=== PATIENT | male | born 1950 | race Caucasian/White ===

== ENCOUNTER 2018-03-15 20:28 | Emergency (ER) | payer MEDICARE ==
[2018-03-15] MEDS ORDERED: Tetan/Diph/Pertus SYR(Tdap)* 0.5 ML SYR(BOOSTRIX) use SYR IM ONE (21:07)
[2018-03-15] MEDS ORDERED: NS 0.9% 1000 ML* 1,000 ML IV ONE (21:07)
[2018-03-15] MEDS ORDERED: Lidocaine 2% EPI 1:200000 MPF*10-20 ML VIAL ONE (21:10)
[2018-03-15 22:10] LABS: ABS Basophils 0.1 10^3/ul (0-0.2); ABS Eosinophils 0.1 10^3/ul (0-0.6); ABS Lymphocytes 0.8 10^3/ul (1.0-4.8); ABS Neutrophils 15.4 10^3/ul (1.5-7.7); ABS Nucleated RBC 0 10^3/ul; Eosinophil % 0.4 % (0-6); Hematocrit 43 % (42-52); Hemoglobin 14.2 g/dl (14.0-18.0); Lymphocyte % 4.5 % (25-47); Mean Corpuscular HGB Conc 33 g/dl (31-36); Mean Corpuscular Hemoglobin 29 pg (27-31); Mean Corpuscular Volume 87 fL (80-94); Mean Platelet Volume 8.1 um3 (7.4-10.4); Nucleated Red Blood Cells % 0; Platelet Count 220 10^3/ul (150-450); Red Blood Count 4.94 10^6/ul (4.0-5.4); Red Cell Distribution Width 14 % (10.5-15); White Blood Count 17.2 10^3/ul (3.5-10.8)
[2018-03-15 22:21] LABS: EGFR Non-African American 56.1 (>60)
[2018-03-15 23:20] VITALS: BP 149/82
--- NOTE | 2018-03-16 00:41 | ED ---
Destin Barnett Gabriel, scribed for Abhijeet Salinas MD on 03/15/18 at 2105 . Laceration/Wound HPI - HPI Summary HPI Summary: This patient is a 67 year old M BIBA to [facility] s/p syncopal episode that occurred [employer]. Pt was at the gym lifting when he had a sudden LOC. He states this has happened several times in the past but it has been a few years since the last one. After his most recent one the patient received a full cardiac work up but nothing abnormal was found. It was diagnosed as vasovagal episodes. Today when the patient fell he struck his chin causing a laceration on the inferior aspect of it. - History of Current Complaint Stated Complaint: SYNCOPE Time Seen by Provider: 03/15/18 20:53 Hx Obtained From: Patient Mechanism of Injury: Sharp/Blunt Trauma Onset/Duration: Sudden Onset, Resolved Onset Severity: Mild Current Severity: Mild Pain Intensity: 0 Pain Scale Used: 0-10 Numeric Associated Signs & Symptoms: Negative - fever - Allergy/Home Medications Allergies/Adverse Reactions: Allergies Allergy/AdvReac Type Severity Reaction Status Date / Time No Known Allergies Allergy Verified 11/16/16 11:27 PMH/Surg Hx/FS Hx/Imm Hx Cardiovascular History: Reports: Hx Hypertension Denies: Hx Hypotension, Hx Myocardial Infarction, Hx Pacemaker/ICD Respiratory History: Denies: Hx Chronic Obstructive Pulmonary Disease (COPD), Hx Cystic Fibrosis GI History: Denies: Hx Gastrointestinal Bleed Neurological History: Reports: Other Neuro Impairments/Disorders - vasovagal episodes Psychiatric History: Denies: Hx Attention Deficit Hyperactivity Disorder Infectious Disease History: No Infectious Disease History: Denies: Traveled Outside the [place] in Last 30 Days - Family History Known Family History: Positive: Hypertension, Diabetes Negative: Cardiac Disease, Respiratory Disease, Seizure Disorder - Social History Lives: With Family Alcohol Use: None Substance Use Type: Reports: None Smoking Status (MU): Never Smoked Tobacco Review of Systems Positive: Other - lac on chin Positive: Syncope All Other Systems Reviewed And Are Negative: Yes Physical Exam - Summary Physical Exam Summary: VITAL SIGNS: Reviewed. GENERAL: Patient is a well-developed and nourished malewho is lying comfortable in the stretcher. Patient is not in any acute respiratory distress. HEAD AND FACE: No signs of trauma. No ecchymosis, hematomas or skull depressions. No sinus tenderness. EYES: PERRLA, EOMI x 2, No injected conjunctiva, no nystagmus. EARS: Hearing grossly intact. Ear canals and tympanic membranes are within normal limits. MOUTH: Oropharynx within normal limits. NECK: Supple, trachea is midline, no adenopathy, no JVD, no carotid bruit, no c- spine tenderness, neck with full ROM. CHEST: Symmetric, no tenderness at palpation LUNGS: Clear to auscultation bilaterally. No wheezing or crackles. CVS: Regular rate and rhythm, S1 and S2 present, no murmurs or gallops appreciated. ABDOMEN: Soft, non-tender. No signs of distention. No rebound no guarding, and no masses palpated. Bowel sounds are normal. EXTREMITIES: FROM in all major joints, no edema, no cyanosis or clubbing. NEURO: Alert and oriented x 3. No acute neurological deficits. Speech is normal and follows commands. SKIN: there is a 1 inch laceration with active bleeding on his chin Triage Information Reviewed: Yes Vital Signs On Initial Exam: Initial Vitals Temp Pulse Resp BP Pulse Ox 97.9 F 77 18 130/81 98 03/15/18 20:33 03/15/18 20:33 03/15/18 20:33 03/15/18 20:33 03/15/18 20:33 Vital Signs Reviewed: Yes Procedures - Procedure Summary Procedure Summary: There was a .5cm laceration under the bottom lip that was repaired with derma dukes. Sterile technique was used and procedure was well tolerated. - Laceration/Wound Repair 1 Location: face - inferior chin Description: Irregular Anesthesia: 2.0%, Lido, Epi Length, Depth and Shape: 3cm Irrigated w/ Saline (ccs): 100 Laceration/Wound Explored: clean, no foreign body removed Suture Type: Prolene - 3O Number of Sutures: 13 Layer Closure?: Yes Sterile Dressing Applied?: Yes Diagnostics - Vital Signs Vital Signs Temp Pulse Resp BP Pulse Ox 03/15/18 20:33 97.9 F 77 18 130/81 98 - Laboratory Result Diagrams: 03/15/18 21:57 03/15/18 21:57 Lab Statement: Any lab studies that have been ordered have been reviewed, and results considered in the medical decision making process. - EKG 2137 Cardiac Rate: NL EKG Rhythm: Sinus Rhythm - at [address] Segment: Non-Specific Re-Evaluation - Re-Evaluation First Eval Re-Evaluation Time: 22:58 Change: Improved Comment: Pt is feeling better, I reviewed lab results with the pt. Laceration Repair Course/Dx - Course Assessment/Plan: This patient is a 67 year old M BIBA to [facility] s/p syncopal episode that occurred [employer]. Pt was at the gym lifting when he had a sudden LOC. He states this has happened several times in the past but it has been a few years since the last one. After his most recent one the patient received a full cardiac work up but nothing abnormal was found. It was diagnosed as vasovagal episodes. Today when the patient fell he struck his chin causing a laceration on the inferior aspect of it. An EKG reveals non specific T wave changes. Tetanus was given. . Test results with no significant abnormalities. Dx chin laceration and vasovagal syncope. Patient will be discharged and follow up from PCP in 5 days. The patient is agreeable with this plan. - Clinical Impression Provider Diagnoses: Laceration, Vasovagal episode Discharge - Sign-Out/Discharge Documenting (check all that apply): Discharge/Admit/Transfer - Discharge Plan Condition: Stable Disposition: HOME Patient Education Materials: Syncope (ED), Stitches Removal (ED) Referrals: Natasha Quintero MD [Primary Care Provider] - 5 Days Additional Instructions: Please follow up with your primary care doctor in 5-7 days to have the sutures removed. RETURN TO THE ER FOR ANY NEW OR WORSENING SYMPTOMS The documentation as recorded by the Destin bianchi Gabriel accurately reflects the service I personally performed and the decisions made by me, Abhijeet Salinas MD.
== END 2018-03-15 23:20 | disposition home or self-care (01) ==
LOC: ED 20:28
DX: R55 Syncope and collapse (principal); S01.81XA Laceration without foreign body of other part of head, initial encounter; W22.8XXA Striking against or struck by other objects, initial encounter; Y93.B3 Activity, free weights; Y92.39 Other specified sports and athletic area as the place of occurrence of the external cause; Z23 Encounter for immunization; I10 Essential (primary) hypertension
CPT/HCPCS: 12013; 36415; 80053; 83735; 84443; 84484; 85025; 85730; 90471; 90715; 93005; 96360; 99283